=== PATIENT | female | born 1985 | race Two or more races ===

== ENCOUNTER 2019-02-07 11:53 | Outpatient (CLI) | payer OTHER ==
[~2019-02-07 11:53] MED LIST: ALBUTEROL SULF8.5 GM IH; CATAFLAM50 MG PO; GILTUSS TR TAB1 EACH PO; ZYRTEC10 MG PO
== END 2019-02-07 12:02 | disposition home or self-care (01) ==
LOC: EKG 11:53
DX: R00.2 Palpitations (principal)

== ENCOUNTER 2024-08-02 11:09 | Outpatient (CLI) | payer OTHER | END 2024-08-02 11:12 | disposition home or self-care (01) | LOC: SONOGRAMA 11:09 | PROVIDERS: ATTEND Pathology Anatomic Pathology & Clinical Pathology | DX: R59.0 Localized enlarged lymph nodes (principal); E04.1 Nontoxic single thyroid nodule ==